=== PATIENT | female | born 1995 | race Caucasian/White ===

== ENCOUNTER 2016-09-19 20:42 | Emergency (ER) | payer BC ==
--- NOTE | 2016-09-19 20:56 | EDM.PDOC ---
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 Patient is known to be Rh- and she was given a dose of RhoGAM. She was concerned that she was having having bleeding earlier but now that's improved and she has light spotting. She developed some suprapubic cramping but that's now resolved. Her bowel and bladder habits are normal. No vaginal discharge or fever patient otherwise feels well Review of systems: As per history of present illness and below otherwise all systems reviewed and negative. Past medical history: As per history of present illness and as reviewed below otherwise noncontributory. Surgical history: As per history of present illness and as reviewed below otherwise noncontributory. Social history: No reported history of drug or alcohol abuse. Family history: As per history of present illness and as reviewed below otherwise noncontributory. Physical exam: HEENT: Atraumatic, normocephalic, pupils reactive, negative for conjunctival pallor or scleral icterus, mucous membranes moist, throat clear, neck supple, nontender, trachea midline. Lungs: Clear to auscultation, breath sounds equal bilaterally, chest nontender. Heart: S1S2, regular, negative for clicks, rubs, or JVD. Abdomen: Soft, nondistended, nontender. Negative for masses or hepatosplenomegaly. Negative for costovertebral tenderness. Pelvis: Stable nontender. Genitourinary: Deferred. Rectal: Deferred. Extremities: Atraumatic, negative for cords or calf pain. Neurovascular unremarkable. Neuro: Awake, alert, oriented. Cranial nerves II through XII unremarkable. Cerebellum unremarkable. Motor and sensory unremarkable throughout. Exam nonfocal. Diagnostics: [] Therapeutics: [] Impression: [Incomplete miscarriage] Plan: [Rest and fluids follow-up with Dr. Upton on Wednesday. Return immediately for new severe or worsening symptoms, specifically for uncontrolled bleeding severe pain lightheadedness or nearly fainting] Definitive disposition and diagnosis as appropriate pending reevaluation and review of above. no pain Pain Score (Numeric/FACES): 0 - Related Data Allergies Allergy/AdvReac Type Severity Reaction Status Date / Time No Known Allergies Allergy Verified 09/19/16 20:52 Home Meds: Home Meds Amoxicillin [Amoxil 250 MG/5 ML Susp] 750 mg PO BID 09/19/16 [History] ED ROS GENERAL - Review of Systems Review Of Systems: See Below (History of present illness) ED EXAM - Physical Exam Exam: See Below (History of present illness) Course - Vital Signs Last Recorded V/S: Last Vital Signs Temp 36.3 C 09/19/16 20:46 Pulse 98 09/19/16 22:29 Resp 16 09/19/16 22:29 BP 110/73 09/19/16 22:29 Pulse Ox 98 09/19/16 22:29 - Orders/Labs/Meds Labs: Laboratory Tests 09/19/16 09/19/16 Range/Units 21:01 21:01 Hgb 12.0 (12.0-16.0) g/dL Hct 34.4 L (36.0-46.0) % HCG, Quant 9047.6 mIU/mL Departure - Departure Time of Disposition: 22:06 Disposition: Home, Self-Care 01 Condition: Good Clinical Impression: Miscarriage - Discharge Information Instructions: Miscarriage, [id number] Forms: ED Department Discharge Additional Instructions: You were previously diagnosed with a miscarriage. Your bleeding is consistent with that diagnosis. Your quantitative hCG level was 9047 today. Your hemoglobin level is 12.0 which is normal. Your vaginal bleeding has improved dramatically from your description of it prior to arrival. Since your blood pressure and pulse are stable no further workup or treatment is indicated in the emergency department today. [place] been treated with RhoGAM for your Rh-. Follow-up with Dr. 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 Call him Wednesday morning at 9 AM for an appointment that day for reevaluation and to recheck your quantitative hCG and compare it to the aforementioned value of 9047. Rest and drink plenty of fluids. Observe pelvic rest. Return immediately for new severe or worsening symptoms specifically uncontrolled pain fevers or worsening bleeding especially in the setting of lightheadedness near fainting or fainting.
[2016-09-19 22:32] VITALS: BP 110/73
== END 2016-09-19 22:30 | disposition home or self-care (01) ==
LOC: MW.ED 20:42
DX: O03.4 Incomplete spontaneous abortion without complication (principal)
CPT/HCPCS: 36415; 84702; 85014; 85018; 88305; 99283; 99284